=== PATIENT | female | born 1965 | race African-American/Black ===

== ENCOUNTER 2020-04-04 19:34 | Emergency (ER) | payer MEDICARE ==
[~2020-04-04] VITALS: Ht 152.4 cm; Wt 114.3 kg
[2020-04-04] MEDS ORDERED: DILAUDID2 MG PO (19:38)
[2020-04-04] MEDS ORDERED: BENICAR40 MG PO (19:38)
[2020-04-04] MEDS ORDERED: TOPROL XL100 MG PO (19:39)
[2020-04-04] MEDS ORDERED: AMBIEN 10 MG TA10 MG PO (19:57)
[2020-04-04] MEDS ORDERED: PROAIR HFA8.5 GM INH (19:58)
[2020-04-04] MEDS ORDERED: RANITADINE PO (19:59)
[2020-04-04 20:20] LABS: ABSOLUTE BASOPHILS 0.1 thou/uL (0.0-0.2); ABSOLUTE EOSINOPHILS 0.1 thou/uL (0.0-0.7); ABSOLUTE LYMPHOCYTES 1.7 thou/uL (0.8-5.3); ABSOLUTE MONOCYTES 0.7 thou/uL (0.0-1.2); ABSOLUTE NEUTROPHILS 7.6 thou/uL (1.6-8.1); BASOPHILS 1.1 %; EOSINOPHILS 0.7 %; HEMATOCRIT 41.3 % (37.0-47.0); HEMOGLOBIN 13.8 gm/dL (12.0-15.0); LYMPHOCYTES 16.3 %; MCH 25.9 pg (26.0-34.0); MCHC 33.3 g/dL (28.0-37.0); MCV 77.7 fL (80.0-100.0); MONOCYTES 7.3 %; MPV 10.3 fl. (7.2-11.1); NUCLEATED RBCS 0 /100WBC; POLYS 74.6 %; RBC 5.32 mil/uL (4.20-5.00); RDW-CV 15.8 % (10.5-14.5); WBC 10.2 thou/uL (4.0-11.0)
[2020-04-04 20:30] LABS: CALCIUM 8.9 mg/dL (8.5-10.1); CREATININE 1.1 mg/dL (0.6-1.3)
[2020-04-04 20:31] LABS: PROTIME 10.6 Seconds (9.20-11.50)
[2020-04-04 20:34] LABS: ALBUMIN 3.9 g/dL (3.4-5.0); TOTAL BILIRUBIN 0.3 mg/dL (<0.1-1.0); TOTAL PROTEIN 8.4 g/dL (6.4-8.2)
[2020-04-04 20:36] LABS: POTASSIUM 2.8 mmol/L (3.5-5.1)
[2020-04-04 20:47] LABS: PLATELET COUNT* 199 thou/uL (150-400); PLATELET ESTIMATE ADEQUATE
[2020-04-04] MEDS ORDERED: XARELTO20 MG PO (22:15)
[2020-04-04] MEDS ORDERED: XARELTO15 MG PO (22:15)
[2020-04-04] MEDS ORDERED: ZOFRAN ODT4 MG PO (22:16)
[2020-04-04] MEDS ORDERED: HYDROCODON-ACE1 EAC7 PO (22:16)
[2020-04-04 22:41] VITALS: BP 140/89
--- NOTE | 2020-04-05 11:08 | EKG ---
[place] [address] ELECTROCARDIOGRAM REPORT Name: RA CARREON Room: [facility]#: [id number] Admission: 04/04/20 Attend Phys: Discharge: 04/04/20 Date of : 61 Date of Service: 04/04/201935 Report #: [id number] THIS REPORT FOR: //name// [facility] ED Test Date: 2020-04-04 Test Time: 19:36:40 Pat Name: RA CARREON Department: Room: Gender: F [employer]: ZENON : 1965 Requested By: Amrita Lopez Order Number: [id number] MD: Tio De La Paz Measurements Intervals [place] Rate: 91 P: 25 MD: 161 QRS: -9 QRSD: 84 T: 3 QT: 334 QTc: 411 Interpretive Statements Sinus rhythm LVH with secondary repolarization abnormality Baseline wander in lead(s) V4,V5 No previous ECG available for comparison Electronically Signed On 04-05-2020 11:06:45 CDT by Tio De La Paz [email or web address] <ELECTRONICALLY SIGNED> By: Tio De La Paz MD, [facility] 04/05/20 [id number] 35 Tio De La Paz MD, [facility] /EPI
== END 2020-04-04 22:42 | disposition home or self-care (01) ==
LOC: M.ERS 19:34
PROVIDERS: Personal Emergency Response Attendant
DX: R07.89 Other chest pain (principal); I10 Essential (primary) hypertension; J45.909 Unspecified asthma, uncomplicated; Z98.890 Other specified postprocedural states; Z88.0 Allergy status to penicillin